=== PATIENT | female | born 1960 | race Caucasian/White ===

== ENCOUNTER → 2017-11-17 14:12 | Outpatient (CLI) | payer BC, SELFPAY ==
--- NOTE | 2017-11-17 14:37 | XR_ITS ---
XR foot RT min 3V HISTORY: ITS.REASON: RT FOOT PAIN ORDERING PHYSICIAN: Cammy Pinto PATIENT AGE: 57 years COMPARISON: None FINDINGS: No fracture or dislocation. No lytic or blastic change. There is normal mineralization.. There are mild hypertrophic changes along the distal and anterior aspect of the tibia and along the dorsal aspect of the midfoot. There is a small calcaneal spur at 9 mm. IMPRESSION: Mild bony hypertrophic/degenerative change, no acute finding
== END ==
PROVIDERS: PCP Nurse Practitioner Family; Visit Provider Nurse Practitioner Family
DX: M79.671 Pain in right foot (principal)
CPT/HCPCS: 73630

== ENCOUNTER → 2018-03-17 12:31 | Outpatient (CLI) | payer MEDICARE, BC, SELFPAY ==
--- NOTE | 2018-03-17 12:38 | XR_ITS ---
XR knee RT 4V HISTORY: ITS.REASON: Rt knee pain ORDERING PHYSICIAN: Taylor Hernandez MD PATIENT AGE: 57 years COMPARISON: None FINDINGS: There are [id number] osteoarthritic changes of the medial compartment with mild osteoarthritis of the patellofemoral joint. Osteophytes are noted medially and at the patellofemoral joint. No fracture or dislocation. No lytic or blastic change. IMPRESSION: [id number] osteoarthritis
== END ==
PROVIDERS: PCP Nurse Practitioner Family; Visit Provider Orthopaedic Surgery
DX: M25.561 Pain in right knee (principal)
CPT/HCPCS: 73564

== ENCOUNTER → 2018-04-14 13:16 | Outpatient (CLI) | payer MEDICARE, BC, SELFPAY ==
--- NOTE | 2018-04-14 13:22 | XR_ITS ---
XR hip LT 2-3V w/pelvis HISTORY: ITS.REASON: Lt hip pain ORDERING PHYSICIAN: Taylor Hernandez MD PATIENT AGE: 57 years COMPARISON: None FINDINGS: Bipolar prosthesis is present on the left and is in satisfactory position. No evidence of orthopedic complications. There are osteoarthritic changes of the right hip. IMPRESSION: Bipolar prosthesis in place on the left with no acute finding
== END ==
PROVIDERS: PCP Nurse Practitioner Family; Visit Provider Orthopaedic Surgery
DX: M25.552 Pain in left hip (principal)
CPT/HCPCS: 73502

== ENCOUNTER → 2018-06-17 08:06 | Outpatient (CLI) | payer MEDICARE, BC, SELFPAY ==
--- NOTE | 2018-06-17 08:13 | XR_ITS ---
XR hip RT 2-3V w/pelvis HISTORY: ITS.REASON: RT hip pain ORDERING PHYSICIAN: Taylor Hernandez MD PATIENT AGE: 58 years COMPARISON: 04/14/2018 FINDINGS: Moderate osteoarthritic changes are present involving the right hip with loss of joint space and osteophyte formation. No fracture or dislocation. No lytic or blastic change. Bipolar prosthesis is present on the left with no evidence of dislocation. IMPRESSION: Moderate osteoarthritis of the right hip
== END ==
PROVIDERS: PCP Family Medicine; Visit Provider Orthopaedic Surgery
DX: M25.551 Pain in right hip (principal)
CPT/HCPCS: 73502

== ENCOUNTER → 2018-06-18 10:19 | Outpatient (CLI) | payer MEDICARE, BC, SELFPAY ==
--- NOTE | 2018-06-18 13:20 | P.PCN_ITS ---
[facility] Procedure Note Procedure Note:: Date of Procedure: 06/18/2018 Pre-procedure diagnosis: R hip DJD Post-procedure diagnosis: same Procedure: intraarticular corticosteroid injection R hip Performed by: Taylor Hernandez MD Top Bottom Attaching Machine Operator/s: none Anesthesia: local; 3cc 1% lidocaine w/o epinephrine Estimated Blood Loss: none History of Present Illness: 58yo F with mild degenerative changes of the right hip, pain is increasing despite activity modification and the use of NSAIDs. She is s/p L SOFIA by another surgeon and has done well, but would like to delay surgery on the right hip as long as possible. I discussed non-operative treatment options, including intraarticular steroid injection, as well as the risks of the procedure. I explained that this is not a cure for arthritis but a symptom relieving/temporizing measure and that multiple injections may lead to increased destruction of her cartilage, infection, and increased risk of infection after SOFIA. She vocalized understanding and provided informed consent for the procedure. Procedure Note: The patient presented to the radiology department and changed into a gown; consent was reviewed and signed by both myself and the patient, all questions were answered. The patient was placed supine on the fluoroscopy table and the R hip exposed. The anterior groin/hip and proximal thigh were prepped with chlorhexidine. Timeout was performed. Next, the fluoro machine was brought in over the patient?s hip and a picture taken to confirm adequate visualization of the joint. I donned a pair of sterile surgical gloves; the remainder of the procedure was performed in a sterile fashion. Anatomic landmarks were used to find my desired puncture site for my needle; a line was drawn between the ASIS and greater trochanter. Nelson along this line a 25G needle was used to infiltrate the skin and subcutaneous tissues with 3cc lidocaine, advancing at a 30 degree angle. Once this tract was anesthetized, a 20G spinal needle was advanced through the same puncture site and deeper at an oblique angle towards the hip joint. Using fluoro, it was confirmed that the needle was advanced until it was at the level of the femoral neck. The stylus was removed from the spinal needle and 2cc of iodinated contrast solution was injected through the spinal needle. Fluoro was taken again, and the dye confirmed intra-capsular placement of the spinal needle, indicating a successful intraarticular injection. The syringe with contrast was removed, keeping the spinal needle in place, and 40mg Kenalog with 1cc 1% lidocaine w/o epinephrine was injected through the needle into the hip joint. A final fluoro picture was taken, confirming successful intraarticular injection. The spinal needle was removed from the hip and a band- aid was placed over the injection site. The patient has a history of itching after intravenous administration of iodinated contrast material in the past but had no immediate reaction to 2cc of intra-capsular omnipaque in the hip today. She was advised to take benedryl if itching develops. Specimens: none Condition/Disposition: good / home Complications: none
== END ==
PROVIDERS: PCP Nurse Practitioner Family; Visit Provider Orthopaedic Surgery
DX: M16.11 Unilateral primary osteoarthritis, right hip (principal); M25.551 Pain in right hip
CPT/HCPCS: 20610; 77002; Q9967

== ENCOUNTER → 2019-01-13 09:49 | Outpatient (CLI) | payer MEDICARE, BC, SELFPAY ==
--- NOTE | 2019-01-13 09:56 | XR_ITS ---
PROCEDURE: XR CERVICAL SPINE 5V CLINICAL INDICATION: CERVICALGIA Acid at COMPARISON: No exams were available for comparison FINDINGS: Normal alignment. No fracture or dislocation. Minimal degenerative disc disease C4-C5. Mild bilateral foraminal narrowing at C3-C4 slightly greater on the left compared to the right. No lytic or blastic change. No cervical rib. There is minimal carotid artery calcification. IMPRESSION: Mild degenerative changes as described above Dictated by: Ismael Cisse MD 01/13/2019 12:02 Electronically signed by Ismael Cisse MD in [place] 01/13/2019 12:02
== END ==
PROVIDERS: PCP Nurse Practitioner Family; Visit Provider Nurse Practitioner Family
DX: M54.2 Cervicalgia (principal)
CPT/HCPCS: 72050

== ENCOUNTER → 2019-03-31 10:27 | Outpatient (CLI) | payer MEDICARE, BC, SELFPAY ==
--- NOTE | 2019-03-31 10:37 | XR_ITS ---
PROCEDURE: XR CHEST 2V CLINICAL HISTORY: COUGH COMPARISON: No exams were available for comparison FINDINGS: The cardiomediastinal silhouette and pulmonary vascularity are within normal limits. The lungs are clear without infiltrates, suspicious nodules, or pleural effusions. Degenerative changes thoracic spine IMPRESSION: No acute findings. Dictated by: Ismael Cisse MD 03/31/2019 12:30 Electronically signed by Ismael Cisse MD in [place] 03/31/2019 12:30
== END ==
PROVIDERS: PCP Nurse Practitioner Family; Visit Provider Nurse Practitioner Family
DX: R05 Cough (principal)
CPT/HCPCS: 71046

== ENCOUNTER → 2019-08-11 07:37 | Outpatient (CLI) | payer MEDICARE, BC, SELFPAY ==
--- NOTE | 2019-08-11 07:37 | US_ITS ---
PROCEDURE: US GALLBLADDER CLINICAL INDICATION: gallbladder problem Nausea, vomiting, fever Right upper quadrant pain COMPARISON: No exams were available for comparison FINDINGS: Pancreas: Unremarkable/Not well seen Liver: There is some increased echogenicity of the liver suggesting fatty liver. There is appropriate direction of blood flow within a non dilated portal vein. Right kidney: Unremarkable appearing. No hydronephrosis. Gallbladder: There are multiple gallstones present. No gallbladder wall thickening, pericholecystic fluid, or biliary dilatation is evident. Common bile duct is 4 mm. IMPRESSION: Cholelithiasis Dictated by: Ismael Cisse MD 08/11/2019 10:19 Electronically signed by Ismael Cisse MD in [place] 08/11/2019 10:19
== END ==
PROVIDERS: PCP Nurse Practitioner Family; Visit Provider Surgery
DX: K82.9 Disease of gallbladder, unspecified (principal)
CPT/HCPCS: 76705

== ENCOUNTER → 2019-11-23 11:09 | Outpatient (CLI) | payer MEDICARE, BC, SELFPAY ==
[2019-11-23 13:04] LABS: Coronavirus 19 IgG Antibody Negative (Negative); Coronavirus 19 IgM Antibody Negative (Negative)
== END ==
PROVIDERS: Visit Provider Surgery
DX: Z01.818 Encounter for other preprocedural examination (principal); Z12.11 Encounter for screening for malignant neoplasm of colon
CPT/HCPCS: 36415; 86328

== ENCOUNTER 2019-11-24 08:26 | Day surgery (SDC) | payer MEDICARE, BC, SELFPAY ==
[2019-11-22 10:29] VITALS: BMI 29.7
[2019-11-24 08:53] VITALS: BP 116/75; PULSE 75; RESP 18; TEMP 36.7; O2SAT 95
[2019-11-24 09:31] VITALS: O2SAT 97
[2019-11-24 10:01] VITALS: BP 97/63; PULSE 73; RESP 18; TEMP 36.2; O2SAT 96
--- NOTE | 2019-11-24 10:01 | HMH.SCOPE ---
- Procedure: Date: 11/24/19 Patient Date of :: 1960 Procedure Performed:: Colonoscopy with polypectomy Indications:: History of colon polyps Performing Provider:: Benny Sidhu MD Referring Provider:: . Sedation:: Monitored anesthesia care Procedure:: After informed consent was obtained the patient was taken to the endoscopy suite. Sedation ensued after the patient was transferred to the left lateral decubitus position. Pulse, blood pressure, and oxygen saturation were monitored throughout the procedure. Digital rectal exam revealed no significant abnormality. The colonoscope was placed in position. The entire colon was evaluated. The colonoscope was carefully removed and the patient was transferred to recovery in stable condition. Please see findings and specimens below for detail. Findings:: Bowel preparation fair Fairly severe spasticity of sigmoid colon/lack of relaxation Sigmoid diverticulosis Polyps (see specimens) Specimens:: Sessile cecal polyp Lobulated polyp at 15 cm (snare) Recommendations:: Timing of repeat colonoscopy is pending pathology but will likely be between 2-3 years secondary to size/nature of polyps and significant spasticity/lack of relaxation of sigmoid colon. Complications:: No immediate Estimated blood obtained (mL): 1
[2019-11-24 10:11] VITALS: BP 121/64; PULSE 74; RESP 18; O2SAT 96
[2019-11-24 10:21] VITALS: BP 125/75; PULSE 74; RESP 18; O2SAT 96
[2019-11-24 10:29] VITALS: BP 110/70; PULSE 70; RESP 18; O2SAT 97
--- NOTE | 2019-11-24 10:54 | P.PN_ITS ---
[facility] Anesthesia Checklist - Patient Identification Patient Identification: Arm Band, Verbal (Name & ) - Structural Data Admitted From: Home Planned Operative Procedure/s: Colonoscopy Consent for Planned Operative Procedure(s) Verified: Yes Verified Documents: Surgical Consent, History and Physical - NPO Status Verified Time NPO: 00:00 - Chart Verification Results Verified: None - Additional verifications Anesthesia Reactions: No - Airway Assessment C-Spine Mobility Assessed: Yes TMJ Mobility Assessed: Yes Dentition: Good Dentition - Neurological Assessment Level of Consciousness: Awake, Alert, Appropriate, Follows Commands Hx Seizures: No Numbness or tingling in extremities: No - Anesthesia Plan Anesthesia Risk discussed: Yes Anesthesia Plan: Verified ASA Class: II Anesthesia Type: [facility] History I have reviewed the patient's past medical history: Yes Medical History: Reports:: Cancer (kidney), Gastroesophageal Reflux Disease(GERD), Hypertension Denies:: Diabetes Mellitus Type 1, Diabetes Mellitus Type 2, Internal Pacemaker, MRSA, Seizures *Have you ever received a pneumonia vaccine?: No *Have you received a flu vaccine this season?: No Other Medical History: Reports: Sinus Problems Anesthesia experience/problems:: None Laterality Cases: Left: Total Hip Replacement Other Surgeries: Yes: Cancer Surgery, Colonoscopy, Hysterectomy-Partial, Other. No: Pacemaker Amputation: No Fractures: No - *Social History Last grade of school completed: 11th or 12th Smoking Status: Former smoker Tobacco Type: cigarettes # Packs/Day (cigarettes): 1 Alcohol Intake: current Alcohol Intake Frequency:: holidays/special occasions only Substance Use Type: denies use *Occupational Status:: retired *Travel in the last 8 weeks: None Family Hx:: Cancer, Coronary Artery Disease, Diabetes
== END 2019-11-24 10:32 | disposition home or self-care (01) ==
LOC: OUTP 08:29
PROVIDERS: PCP Nurse Practitioner Family; Visit Provider Surgery
PROC: 0DJD8ZZ Inspection of Lower Intestinal Tract, Via Natural or Artificial Opening Endoscopic (ICD-10-PCS; principal; 2019-11-24 09:30)
DX: Z12.11 Encounter for screening for malignant neoplasm of colon (principal); K63.5 Polyp of colon; Z86.010 Personal history of colon polyps; Z85.528 Personal history of other malignant neoplasm of kidney; K21.9 Gastro-esophageal reflux disease without esophagitis; I10 Essential (primary) hypertension; Z96.642 Presence of left artificial hip joint; Z90.711 Acquired absence of uterus with remaining cervical stump; Z87.891 Personal history of nicotine dependence; Z83.3 Family history of diabetes mellitus; Z82.49 Family history of ischemic heart disease and other diseases of the circulatory system; Z80.9 Family history of malignant neoplasm, unspecified
CPT/HCPCS: 45380; 45385; 88305

== ENCOUNTER 2021-01-04 19:09 | Emergency (ER) | payer MEDICARE, BC, SELFPAY ==
[2021-01-04 19:15] VITALS: BP 123/95; PULSE 71; RESP 20; TEMP 36.8; O2SAT 95; BMI 26.4
--- NOTE | 2021-01-04 19:50 | HMH.EDUTC ---
[facility] [place] Clinical Impression: Exposure to COVID-19 virus Acute bronchitis Qualifiers: Bronchitis organism: unspecified organism Qualified Code(s): J20.9 - Acute bronchitis, unspecified Sinusitis Qualifiers: Sinusitis location: unspecified location Chronicity: acute Recurrence: non-recurrent Qualified Code(s): J01.90 - Acute sinusitis, unspecified Disposition: Home, Self-Care Condition on Discharge: Good Instructions: DI for Sinusitis, DI for Acute Bronchitis Additional Instructions: Drink plenty of fluids. Take tylenol or ibuprofen for pain or fever. Take the medications as directed. Follow up with your regular doctor. GO TO THE ER FOR ANY WORSENING SYMPTOMS Quarantine until you know the results of your covid-19 test. If it is positive, the health department should call you and give you further instructions about your length of Quarantine and other things. Notify your school or workplace of your results and follow their instructions regarding return to work/school. The cough medication (promethazine dm) will make you drowsy, so don't drive or operate heavy machinery after taking it. Prescriptions: Promethazine/Dextromethorphan [Promethazine-Dm Syrup] 5 ml PO Q6HP PRN #240 ml PRN Reason: Cough Transmission Status: Received by [facility] methylPREDNISolone [Medrol] 4 mg PO DIRECTED 6 Days #21 packet Transmission Status: Received by [facility] guaiFENesin [Mucinex 600mg tablet] 1 - 2 tab PO BIDP PRN #30 tab PRN Reason: Congestion Transmission Status: Received by [facility] Azithromycin [Z-Lucas 250mg Tab*] 250 mg PO UD DOSE PK #6 tab Transmission Status: Received by [facility] Referrals: Cammy Pinto APRN [Primary Care Provider] - Time of Disposition: 20:23 Medical Decision Making - Medical Records Medical records reviewed: No: I reviewed the patient's medical records. - Jacques Inquiry Pt receiving controlled substance: No Vital Signs: 01/04/21 19:15 01/04/21 20:25 Temperature 98.3 F 98.3 F Temperature Source Oral Pulse Rate 71 Pulse Rate [Right Brachial] 71 Respiratory Rate 20 20 Blood Pressure 123/95 H Blood Pressure [Right Arm] 123/95 H Blood Pressure Mean [Right Arm] 104 Blood Pressure Source [Right Arm] Automatic Cuff Blood Pressure Position [Right Arm] Sitting 02 Sat by Pulse Oximetry 95 Oxygen Delivery Method Room Air - Lab Data Lab results reviewed: Yes: I reviewed the patient's lab results. Medical Decision Narrative: She refused a chest x-ray. [facility] [place] General Stated complaint: Covid test. Sore throat,Abd Pain,Runny nose] Time Seen by Provider: 01/04/21 19:50 Mode of Arrival: Ambulatory Source of Information: Patient Limitations: No Limitations Description of Symptoms (Recalled from Triage Doc. by RN): PATIENT C/O HEADACHE, RUNNY NOSE, WEAKNESS, AND RIGHT EAR PAIN. RECENTLY EXPOSED TO COVID HEENT Symptoms (Recalled from RN notes): Yes Resp Symptoms (Recalled from RN notes): No Skin Symptoms (Recalled from RN notes): No MS Symptoms (Recalled from RN notes): No Functional Status (Recalled from RN notes): WNL - History of Present Illness Provider Complaint: She states that over the past 3 days, she has got progressively more congested in her chest and sinuses. She is coughing up greenish sputum. She denies fever, but she has had some chilling at night. She has been fully vaccinated against covid-19. She was around someone about 1 week ago that turned out to have covid-19 though. - Related Data Home Medications Medication Instructions Recorded Confirmed esomeprazole magnesium 40 mg 40 mg PO DAILY 01/28/18 11/24/19 capsule,delayed release propranolol 60 mg capsule,24 60 mg PO DAILY 06/29/19 11/24/19 hr,extended release Escitalopram Oxalate 10 mg PO DAILY 11/22/19 11/22/19 Montelukast Sodium 10 mg PO PM 11/22/19 11/22/19 Previous Rx's Medication Instructions Recorded Cecile
[2021-01-04 20:25] VITALS: BP 123/95; PULSE 71; RESP 20; TEMP 36.8; O2SAT 95
== END 2021-01-04 20:27 | disposition home or self-care (01) ==
LOC: UTC 19:19
PROVIDERS: Emergency Provider Nurse Practitioner Family; PCP Nurse Practitioner Family
DX: J20.9 Acute bronchitis, unspecified (principal); J01.90 Acute sinusitis, unspecified; Z87.891 Personal history of nicotine dependence; K21.9 Gastro-esophageal reflux disease without esophagitis; I10 Essential (primary) hypertension; Z96.642 Presence of left artificial hip joint; Z20.822 Contact with and (suspected) exposure to COVID-19
CPT/HCPCS: 99202; C9803; G0463; U0003; U0005

== ENCOUNTER → 2021-03-28 20:57 | Outpatient (CLI) | payer MEDICARE, BC, SELFPAY | PROVIDERS: Visit Provider Nurse Practitioner Family | DX: J02.9 Acute pharyngitis, unspecified (principal); Z20.822 Contact with and (suspected) exposure to COVID-19 | CPT/HCPCS: C9803; U0003; U0005 ==

== ENCOUNTER 2022-08-24 03:50 | Emergency (ER) | payer MEDICARE, BC, SELFPAY ==
[2022-08-24 03:58] VITALS: BP 153/92; PULSE 68; O2SAT 96
[2022-08-24 04:07] VITALS: BP 153/92; PULSE 75; RESP 16; TEMP 36.6; O2SAT 98; BMI 31.3
--- NOTE | 2022-08-24 04:13 | XR_ITS ---
PROCEDURE INFORMATION: Exam: XR Left Knee Exam date and time: 08/24/2022 4:12 AM Age: 62 years old Clinical indication: Pain; Knee; Left; Additional info: Fall TECHNIQUE: Imaging protocol: Radiologic exam of the left knee. Views: 3 views. COMPARISON: No relevant prior studies available. FINDINGS: Bones/joints: Narrowing of the medial compartment. Mild osteopenia. A small to moderate-sized suprapatellar effusion. Soft tissues: Normal. IMPRESSION: No fracture or dislocation. Degenerative changes and suprapatellar effusion.
--- NOTE | 2022-08-24 04:13 | XR_ITS ---
PROCEDURE INFORMATION: Exam: XR Right Foot Exam date and time: 08/24/2022 4:19 AM Age: 62 years old Clinical indication: Pain; Foot; Right; Additional info: Fall TECHNIQUE: Imaging protocol: Radiologic exam of the right foot. Views: 3 or more views. COMPARISON: CR [id number] XR foot RT min 3V 11/17/2017 2:37 PM FINDINGS: Bones/joints: Normal. Soft tissues: Normal. IMPRESSION: No acute findings.
--- NOTE | 2022-08-24 04:13 | XR_ITS ---
PROCEDURE INFORMATION: Exam: XR Right Knee Exam date and time: 08/24/2022 4:13 AM Age: 62 years old Clinical indication: Pain; Knee; Right; Additional info: Fall TECHNIQUE: Imaging protocol: Radiologic exam of the right knee. Views: 3 views. COMPARISON: CR [id number] XR knee RT 4V 03/17/2018 12:55 PM FINDINGS: Bones/joints: Narrowing of the medial compartment. Soft tissues: Normal. IMPRESSION: Mild degenerative changes. No acute fracture or dislocation.
--- NOTE | 2022-08-24 04:13 | XR_ITS ---
PROCEDURE INFORMATION: Exam: XR Left Hip Exam date and time: 08/24/2022 4:09 AM Age: 62 years old Clinical indication: Hip pain and pelvic pain; Left hip; Additional info: Fall TECHNIQUE: Imaging protocol: Radiologic exam of the left hip. Views: 2 or 3 views hip with pelvis when performed. COMPARISON: CT ABDOMEN PELVIS WO CON 06/11/2019 3:51 PM FINDINGS: Bones/joints: Prior bilateral hip arthroplasty. Soft tissues: Unremarkable. IMPRESSION: Prior hip arthroplasties. No acute process noted.
--- NOTE | 2022-08-24 04:13 | XR_ITS ---
PROCEDURE INFORMATION: Exam: XR Left Foot Exam date and time: 08/24/2022 4:16 AM Age: 62 years old Clinical indication: Pain; Foot; Left; Additional info: Fall TECHNIQUE: Imaging protocol: Radiologic exam of the left foot. Views: 3 or more views. COMPARISON: CR Knee L 08/24/2022 4:12 AM FINDINGS: Bones/joints: Normal. Prior ORIF distal aspect of the 5th metatarsal. Soft tissues: Normal. IMPRESSION: No acute findings.
--- NOTE | 2022-08-24 05:38 | PC.NURSE ---
Rounded on pt. Pt updated on expected wait times. No needs voiced at this time.
--- NOTE | 2022-08-24 06:05 | HMH.EDFALL ---
Discharge Plan Disposition Patient Disposition: Home, Self-Care Chief Complaint: Fall Prescriptions Prescriptions: No Action propranolol 60 mg capsule,extended release 24 hr 60 mg PO DAILY esomeprazole magnesium 40 mg capsule,delayed release(DR/EC) 40 mg PO DAILY atorvastatin 20 mg tablet 20 mg PO DAILY metformin 500 mg tablet extended release 24 hr 500 mg PO POSTTR escitalopram oxalate 10 mg tablet 10 mg PO DAILY Referrals Follow up/Referrals: Cammy Pinto APRN [Primary Care Provider] - See instructions Chris Willams JR, MD [Physician] - See instructions Clinical Impressions Clinical Impression: Injury of knee, left, Internal derangement of knee, Foot pain, bilateral, Fall Instructions Patient Instructions: DI for Knee Pain Discharge ED Provider: Heather (ED)Carl Fall [facility] General Chief Complaint: Fall Stated Complaint: AO 08/23/22 2230 left knee, foot, hip pain Time Seen by Provider: 08/24/22 05:00 Mode of Arrival: Ambulatory Source of Information: Patient and Medical Record Limitations: No Limitations Description of Symptoms (Recalled from ER Triage Doc. by RN): Pt states that she was walking in her kitchen at approx 2200 when she slipped on water and fell. Denies any loss of consciousness. States that she landed on her buttocks. C/O left foot and knee pain, as well as right knee, right knee and bilateral hip pain. Patient is able to ambulate without assistance. History of Present Illness HPI Narrative: trip injury and has knee pain and foot pain reggie HOPKINS complaint: fall Onset (ago): hour(s) Fall from: walking Fall witnessed: no Place fall occurred: home Loss of consciousness: none Prolonged down time: no Symptoms prior to fall: none Context: tripped/slipped Location of injury - extremities: Bilateral: knee and foot Severity: moderate Associated symptoms (after fall): denies Related Data Home Medications Medication Instructions Recorded Confirmed esomeprazole magnesium 40 mg 40 mg PO DAILY acid reflux 01/28/18 08/24/22 capsule,delayed release propranolol 60 mg capsule,24 60 mg PO DAILY blood pressure 06/29/19 08/24/22 hr,extended release escitalopram oxalate 10 mg tablet 10 mg PO DAILY Depression 11/22/19 08/24/22 atorvastatin 20 mg tablet 20 mg PO DAILY High cholesterol 08/24/22 08/24/22 metformin 500 mg tablet,extended 500 mg PO POSTTR daily 08/24/22 08/24/22 release 24 hr Allergies Allergy/AdvReac Type Severity Reaction Status Date / Time Iodinated Contrast Media Allergy Hives Verified 03/28/21 16:29 [Iodinated Contrast Media - Oral and] ibuprofen AdvReac Other Verified 08/24/22 04:01 [facility] Disclaimer: The information contained in this section may have been updated after the patient was seen, as this information can be updated by other users. Social History Smoking Status: Current every day smoker tobacco type: cigarettes packs per day: 1 alcohol intake: current substance use type: denies use current occupational status: retired Travel in the last 8 weeks: None caffeine: Yes ROS Obtained: Yes All systems reviewed & no additional complaints except as documented Physical Exam General General appearance: alert Head Head exam: normocephalic Eye Eye exam: Present PERRL and EOMI ENT ENT exam: Present mucous membranes moist Neck Neck exam: Present trachea midline Respiratory Respiratory exam: Present normal lung sounds bilaterally; Absent respiratory distress Cardiovascular Cardiovascular exam: Present regular rate Extremities Exam Extremities exam: Present full ROM and other (sl effusion lt knee ext mech ok with dec rom , rt knee with pain with rom - feet bilat with sts ) Neurological Exam Neurological exam: Present alert, oriented X3 and CN II-XII intact; Absent motor sensory deficit Psychiatric Psychiatric exam: Present normal affect Skin Skin exam: Absent rash Medical Decision Making Medi
[2022-08-24 06:20] VITALS: BP 153/92; PULSE 78; RESP 18; TEMP 36.6; O2SAT 98
== END 2022-08-24 06:22 | disposition home or self-care (01) ==
PROVIDERS: Emergency Provider Emergency Medicine; PCP Nurse Practitioner Family
DX: M25.562 Pain in left knee (principal); M23.92 Unspecified internal derangement of left knee; M79.671 Pain in right foot; M79.672 Pain in left foot; W01.0XXA Fall on same level from slipping, tripping and stumbling without subsequent striking against object, initial encounter; F17.210 Nicotine dependence, cigarettes, uncomplicated; M25.561 Pain in right knee; M25.551 Pain in right hip; M25.552 Pain in left hip
CPT/HCPCS: 73502; 73562; 73630; 99284; 99285

== ENCOUNTER → 2023-02-06 17:06 | Outpatient (CLI) | payer MEDICARE, BC, SELFPAY ==
[2023-02-06 19:22] LABS: Alanine Aminotransferase 28 U/L (12-78); Albumin Level 4.9 g/dl (3.5-5.0); Albumin/Globulin Ratio 1.5 (1.1-1.8); Alkaline Phosphatase 70 U/L (38-126); Anion Gap 18.8 mEq/L (5-15); Aspartate Amino Transferase 32 U/L (14-36); Bilirubin,Total 0.5 mg/dl (0.2-1.3); Blood Urea Nitrogen 17 mg/dl (7-17); Carbon Dioxide 25 mmol/L (22.0-30.0); Chloride 99 mmol/L (98-107); Chol/HDL Ratio 4.6 (1-3.5); Cholesterol 171 mg/dl (140-200); Estimated Glomerular Filt Rate 85 ml/min (>60); GFR (African American) 103 ML/MIN (>60); Globulin 3.3 g/dL (1.3-3.2); Glucose 152 mg/dl (74-100); HDL Cholesterol 37 mg/dl (40-60); Potassium 4.8 mmoL/L (3.5-5.1); Sodium 138 mmol/L (136-145); Total Protein,Serum 8.2 g/dl (6.3-8.2); Triglycerides 198 mg/dl (30-150); VLDL Cholesterol 40 mg/dL (0-40)
[2023-02-06 19:33] LABS: Direct LDL Cholesterol 100.43 mg/dL (100-129)
[2023-02-06 19:34] LABS: Hemoglobin A1C 6.9 % (4.0-6.0)
== END ==
PROVIDERS: PCP Nurse Practitioner Family; Visit Provider Nurse Practitioner Family
DX: E11.9 Type 2 diabetes mellitus without complications (principal); E78.5 Hyperlipidemia, unspecified; Z79.84 Long term (current) use of oral hypoglycemic drugs
CPT/HCPCS: 80053; 80061; 83036

== ENCOUNTER 2023-06-09 18:00 | Outpatient (CLI) | payer MEDICARE, BC, SELFPAY ==
[2023-06-09 18:00] LABS: Coronavirus 19, PCR Not Detected (NotDetected); Influenza A, PCR Not Detected (NotDetected); Influenza B, PCR Not Detected (NotDetected)
== END 2023-06-09 23:59 ==
PROVIDERS: PCP Nurse Practitioner Family; Visit Provider Nurse Practitioner Family
DX: R50.9 Fever, unspecified (principal); R53.83 Other fatigue; H92.01 Otalgia, right ear; R07.0 Pain in throat
CPT/HCPCS: 87636

== ENCOUNTER 2023-08-06 17:26 | Emergency (ER) | payer MEDICARE, BC, SELFPAY ==
--- NOTE | 2023-08-06 17:38 | EXP.UTC ---
Discharge Plan Disposition Patient Disposition: Home, Self-Care Condition: Good Prescriptions Prescriptions: New phenazopyridine [Pyridium] 200 mg tablet 200 mg PO Q8H 2 Days Qty: 6 0RF ondansetron 4 mg Tablet,Disintegrating 4 mg PO Q8H PRN (Reason: Nausea) Qty: 8 0RF nitrofurantoin monohyd/m-cryst [Macrobid] 100 mg Capsule 100 mg PO BID Qty: 10 0RF Rx Instructions: must administer with a meal/food No Action propranolol 60 mg capsule,extended release 24 hr 60 mg PO DAILY atorvastatin 20 mg tablet 20 mg PO DAILY 30 Days Qty: 30 2RF metformin 750 mg tablet extended release 24 hr See Rx Instructions .ROUTE .COMPLEX Qty: 30 0RF Dose Instruction: TAKE 1 TABLET BY MOUTH ONCE DAILY Rx Instructions: TAKE 1 TABLET BY MOUTH ONCE DAILY omeprazole 40 mg capsule,delayed release(DR/EC) See Rx Instructions .ROUTE .COMPLEX Qty: 30 9RF Dose Instruction: TAKE 1 CAPSULE BY MOUTH 30 MINUTES BEFORE MORNING MEAL EACH DAY Rx Instructions: TAKE 1 CAPSULE BY MOUTH 30 MINUTES BEFORE MORNING MEAL EACH DAY escitalopram oxalate 10 mg tablet 10 mg PO DAILY Referrals Follow up/Referrals: Cammy Pinto APRN [Primary Care Provider] - See instructions Activity Restrictions/Add. Instructions Additional Instructions/Restrictions: Drink plenty of fluids. Take tylenol or ibuprofen for pain or fever. Take the medications as directed. Follow up with your regular doctor. GO TO THE ER FOR ANY WORSENING SYMPTOMS The pyridium will make your urine turn orange, this is an expected side effect. It will stain your clothes if it comes into contact with them. We will culture the urine. That will tell what bacteria is causing your infection and which antibiotics will treat it best. Sometimes the first antibiotic we prescribe turns out to not work against different bacteria. So, make sure you follow up within 3 days if you are not getting better. Clinical Impressions Clinical Impression: UTI (urinary tract infection) Instructions Patient Instructions: Urinary Tract Infection, DI for Urinary Tract Infection (UTI), Ondansetron, Phenazopyridine Discharge ED Provider: Devang L[place] [facility] [place] General Stated complaint: painful frequent urination Time Seen by Provider: 08/06/23 17:37 Related Data Home Medications Medication Instructions Recorded Confirmed propranolol 60 mg capsule,24 60 mg PO DAILY blood pressure 06/29/19 08/06/23 hr,extended release escitalopram oxalate 10 mg tablet 10 mg PO DAILY Depression 11/22/19 08/06/23 Previous Rx's Medication Instructions Recorded atorvastatin 20 mg tablet 20 mg PO DAILY High cholesterol 30 02/06/23 days #30 tabs metformin 750 mg tablet,extended See Rx Instructions .Route 07/31/23 release 24 hr .COMPLEX #30 tabs omeprazole 40 mg capsule,delayed See Rx Instructions .Route 07/31/23 release .COMPLEX #30 caps nitrofurantoin 100 mg PO BID #10 caps 08/06/23 monohydrate/macrocrystals 100 mg capsule (Macrobid) ondansetron 4 mg disintegrating 4 mg PO Q8H PRN Nausea #8 tabs 08/06/23 tablet phenazopyridine 200 mg tablet 200 mg PO Q8H 2 days #6 tabs 08/06/23 (Pyridium) Allergies Allergy/AdvReac Type Severity Reaction Status Date / Time Iodinated Contrast Media Allergy Hives Verified 06/09/23 13:52 [Iodinated Contrast Media - Oral and] ibuprofen AdvReac Other Verified 06/09/23 13:52 [facility] Disclaimer: The information contained in this section may have been updated after the patient was seen, as this information can be updated by other users. Medical History (Updated 08/06/23 @ 18:18 by Devang Lyle APRN) Urinary tract infection History of gastroesophageal reflux (GERD) Diabetes mellitus, type 2 Hyperlipidemia Hypertension Cancer of kidney Surgical History History of kidney surgery History of left oophorectomy H/O bilateral hip replacements Family History (Updated 06/09/23 @ 13:59 by Lizz Gomez LPN) Father Coronary artery disease Mother Diabetes Social History (Updated 06/09/23 @ 14:00 by Lizz Gomez LPN) Smoking Status: Never smoker years smoked: 40 smoking status stop date: 2018 alcohol intake: never substance use type: denies use current occupational status: retired Travel in the last 8 weeks: None caffeine: Yes ROS Obtained: Yes All systems reviewed & no additional complaints except as documented Constitutional Constitutional: Reports system reviewed and no additional complaints, except as documented, Denies chills and Denies fever(s) Eyes Eyes: Denies eye discharge ENT Ears, Nose, Mouth, and Throat: Denies dysphagia, Denies sore throat and Denies throat swelling Cardiovascular Cardiovascular: Denies chest pain and Denies dyspnea Respiratory Respiratory: Denies chest congestion, Denies cough and Denies dyspnea Gastrointestinal Gastrointestingal: Denies abdominal pain, constipation, diarrhea, dysphagia, nausea or vomiting Genitourinary Female Genitourinary: Reports as per HPI, Reports dysuria, Reports urinary frequency, Denies urinary incontinence, Reports urinary hesitancy and Reports urinary urgency Musculoskeletal Musculoskeletal: Denies arthralgias and Reports back pain Integumentary/Breasts Skin/Breast: Denies rash Neurologic Neurologic: Denies paresthesias Allergic/Immunologic Allergic/Immunologic: Denies throat swelling Physical Exam General General appearance: alert and in no apparent distress Head Head exam: atraumatic and normocephalic Eye Eye exam: Present normal appearance, PERRL and EOMI ENT ENT exam: Present normal exam, mucous membranes moist, TM's normal bilaterally and normal external ear exam Neck Neck exam: Present normal inspection, full ROM and trachea midline; Absent tenderness, meningismus or lymphadenopathy Chest Chest inspection: Present normal inspection and symmetric chest wall rise; Absent tenderness Respiratory Respiratory exam: Present normal lung sounds bilaterally; Absent respiratory distress, wheezes or stridor Cardiovascular Cardiovascular exam: Present regular rate, normal rhythm and normal heart sounds Abdominal Exam Abdominal exam: Present soft and normal bowel sounds; Absent distention, tenderness, guarding, rebound, rigidity, incision, psoas sign, obturator sign, heel tap sign, Reyes's sign, Rovsing's sign or tenderness at McBurney's Point Extremities Exam Extremities exam: Present normal inspection, full ROM and normal capillary refill; Absent tenderness, edema, joint swelling, calf tenderness or cyanosis Back Exam Back exam: Present normal inspection and full ROM; Absent tenderness, CVA tenderness (R) or CVA tenderness (L) Neurological Exam Neurological exam: Present alert, oriented X3 and normal gait Psychiatric Psychiatric exam: Present normal affect and normal mood Skin Skin exam: Present warm, dry, intact and normal color Lymphatic Lymphatic Findings: no adenopathy Medical Decision Making Medical Records Medical records reviewed: No I reviewed the patient's medical records. Jacques Inquiry Pt receiving controlled substance: No Lab Data Lab results reviewed: Yes I reviewed the patient's lab results.
[2023-08-06 17:40] VITALS: BP 162/82; PULSE 68; RESP 20; TEMP 36.8; O2SAT 96; BMI 30.4
[2023-08-06 17:56] LABS: Apearance,Urine Clear (Clear); Bilirubin,Urine 1+ (Negative); Blood, Urine 2+ (Negative); Color,Urine Orange (Yellow); Glucose,Urine (UA) 100 (Negative); Ketones,Urine 15 (Negative); Protein,Urine 3+ (Negative); Specific Gravity, Urine >= 1.030 (1.005-1.030); UTC Leukocyte Esterase,Urine 3+ (Negative); UTC Nitrate,Urine Positive (Negative); Urobilinogen,Urine 2 EU/dl (0.2)
[2023-08-06 18:19] VITALS: BP 162/82; PULSE 68; RESP 20; TEMP 36.8; O2SAT 96
== END 2023-08-06 18:24 | disposition home or self-care (01) ==
PROVIDERS: Emergency Provider Nurse Practitioner Family; PCP Nurse Practitioner Family
DX: N39.0 Urinary tract infection, site not specified; B95.2 Enterococcus as the cause of diseases classified elsewhere; R30.0 Dysuria
CPT/HCPCS: 81003; 87086; 87088; 87186; 99212; 99214; G0463

== ENCOUNTER 2023-08-10 10:50 | Outpatient (CLI) | payer MEDICARE, BC, SELFPAY ==
[2023-08-10 18:21] LABS: Alanine Aminotransferase 15 U/L (12-78); Albumin Level 4.6 g/dl (3.5-5.0); Albumin/Globulin Ratio 1.5 (1.1-1.8); Alkaline Phosphatase 71 U/L (38-126); Anion Gap 13.5 mEq/L (5-15); Aspartate Amino Transferase 26 U/L (14-36); Bilirubin,Total 0.6 mg/dl (0.2-1.3); Blood Urea Nitrogen 16 mg/dl (7-17); Carbon Dioxide 32 mmol/L (22.0-30.0); Chloride 101 mmol/L (98-107); Chol/HDL Ratio 4.1 (1-3.5); Cholesterol 180 mg/dl (140-200); Estimated Glomerular Filt Rate 85 ml/min (>60); GFR (African American) 102 ML/MIN (>60); Glucose 101 mg/dl (74-100); HDL Cholesterol 44 mg/dl (40-60); Potassium 4.5 mmoL/L (3.5-5.1); Sodium 142 mmol/L (136-145); Total Protein,Serum 7.6 g/dl (6.3-8.2); Triglycerides 286 mg/dl (30-150); VLDL Cholesterol 57 mg/dL (0-40)
[2023-08-10 18:32] LABS: Direct LDL Cholesterol 98.91 mg/dL (100-129)
[2023-08-10 18:33] LABS: Hemoglobin A1C 6.4 % (4.0-6.0)
[2023-08-10 18:52] LABS: Thyroid Stimulating Hormone 1.27 uIU/mL (0.465-4.68)
== END 2023-08-10 23:59 | disposition home or self-care (01) ==
LOC: LAB.DROPOF 08-11 11:00
PROVIDERS: PCP Nurse Practitioner Family; Visit Provider Nurse Practitioner Family
DX: E78.5 Hyperlipidemia, unspecified; E11.9 Type 2 diabetes mellitus without complications; N39.0 Urinary tract infection, site not specified; Z79.84 Long term (current) use of oral hypoglycemic drugs; Z79.899 Other long term (current) drug therapy; B96.1 Klebsiella pneumoniae [K. pneumoniae] as the cause of diseases classified elsewhere
CPT/HCPCS: 80053; 80061; 83036; 84443; 87086; 87088; 87186

== ENCOUNTER 2023-09-18 10:05 | Outpatient (CLI) | payer MEDICARE, BC, SELFPAY | END 2023-09-18 23:59 | disposition home or self-care (01) | LOC: LAB.DROPOF 09-21 10:06 | PROVIDERS: PCP Nurse Practitioner Family; Visit Provider Nurse Practitioner Family | DX: N39.0 Urinary tract infection, site not specified (principal); B96.20 Unspecified Escherichia coli [E. coli] as the cause of diseases classified elsewhere | CPT/HCPCS: 87086; 87088; 87186 ==

== ENCOUNTER 2023-10-19 11:00 | Outpatient (RCR) | payer MEDICARE, BC, SELFPAY | END 2023-10-19 11:05 | disposition home or self-care (01) | LOC: PT 11:00 | PROVIDERS: Visit Provider Orthopaedic Surgery Adult Reconstructive Orthopaedic Surgery | DX: M25.562 Pain in left knee (principal) | CPT/HCPCS: 97010; 97014; 97016; 97110; 97112; 97140; 97163; 97164; 97530; G0283 ==

== ENCOUNTER 2023-11-23 12:58 | Outpatient (CLI) | payer MEDICARE, BC, SELFPAY | END 2023-11-23 23:59 | disposition home or self-care (01) | LOC: LAB.DROPOF 12:59 | PROVIDERS: PCP Nurse Practitioner Family; Visit Provider Nurse Practitioner Family | DX: N39.0 Urinary tract infection, site not specified (principal); B96.1 Klebsiella pneumoniae [K. pneumoniae] as the cause of diseases classified elsewhere | CPT/HCPCS: 87086; 87088; 87186 ==

== ENCOUNTER 2023-11-26 14:22 | Emergency (ER) | payer MEDICARE, BC, SELFPAY ==
[2023-11-26 14:46] VITALS: BP 135/76; PULSE 117; RESP 20; TEMP 38; O2SAT 98
[2023-11-26 14:55] LABS: UTC Strep Screen (Rapid) Negative (Negative)
--- NOTE | 2023-11-26 15:08 | EXP.UTC ---
Discharge Plan Disposition Patient Disposition: Home, Self-Care Condition: Good Prescriptions Prescriptions: New amoxicillin 875 mg tablet 875 mg PO Q12H Qty: 20 0RF benzonatate 100 mg capsule 100 mg PO TIDP PRN (Reason: Cough) Qty: 30 0RF methylprednisolone 4 mg Tablets,Dose Pack 4 mg PO DIRECTED 6 Days Qty: 21 0RF Rx Instructions: Take 1 pack as directed for 6 days No Action hydrocodone-acetaminophen 5-325 mg tablet 1 tab PO Q4-6H PRN methocarbamol 750 mg tablet 750 mg PO atorvastatin 20 mg tablet 20 mg PO DAILY 30 Days Qty: 30 2RF propranolol 60 mg capsule,extended release 24 hr 60 mg PO DAILY 30 Days Qty: 30 3RF omeprazole 40 mg capsule,delayed release(DR/EC) See Rx Instructions .ROUTE .COMPLEX Qty: 30 9RF Dose Instruction: TAKE 1 CAPSULE BY MOUTH 30 MINUTES BEFORE MORNING MEAL EACH DAY Rx Instructions: TAKE 1 CAPSULE BY MOUTH 30 MINUTES BEFORE MORNING MEAL EACH DAY metformin 750 mg tablet extended release 24 hr See Rx Instructions .ROUTE .COMPLEX Qty: 30 2RF Dose Instruction: TAKE 1 TABLET BY MOUTH ONCE DAILY Rx Instructions: TAKE 1 TABLET BY MOUTH ONCE DAILY escitalopram oxalate 20 mg tablet See Rx Instructions .ROUTE .COMPLEX Qty: 30 1RF Dose Instruction: TAKE 1 TABLET BY MOUTH ONCE DAILY FOR DEPRESSION Rx Instructions: TAKE 1 TABLET BY MOUTH ONCE DAILY FOR DEPRESSION ciprofloxacin HCl 500 mg tablet 500 mg PO BID 10 Days Qty: 20 0RF Referrals Follow up/Referrals: Cammy Pinto APRN [Primary Care Provider] - See instructions Activity Restrictions/Add. Instructions Additional Instructions/Restrictions: Drink plenty of fluids. Take tylenol or ibuprofen for pain or fever. Take the medications as directed. Follow up with your regular doctor. GO TO THE ER FOR ANY WORSENING SYMPTOMS Clinical Impressions Clinical Impression: Pharyngitis, Sinusitis Instructions Patient Instructions: DI for Sinusitis Print Language Print Language: Swazi Discharge ED Provider: Devang Lyle [facility] [place] H[place] General Stated complaint: R ear ache, headache, body aches, sore throat Mode of Arrival: Ambulatory Source of Information: Patient Limitations: No Limitations Time Seen by Provider: 11/26/23 15:08 Description of Symptoms (Recalled from Triage Doc. by RN): kevin,sore throat,earache,body aches,cough HEENT Symptoms (Recalled from RN notes): Yes Resp Symptoms (Recalled from RN notes): Yes Skin Symptoms (Recalled from RN notes): No MS Symptoms (Recalled from RN notes): No Functional Status (Recalled from RN notes): na Related Data Home Medications ?Medication ?Instructions ?Recorded ?Confirmed methocarbamol 750 mg tablet 750 mg PO 08/10/23 11/23/23 hydrocodone 5 mg-acetaminophen 325 1 tab PO Q4-6H PRN 09/18/23 11/23/23 mg tablet Previous Rx's ?Medication ?Instructions ?Recorded omeprazole 40 mg capsule,delayed See Rx Instructions .Route 07/31/23 release .COMPLEX #30 caps atorvastatin 20 mg tablet 20 mg PO DAILY High cholesterol 30 08/10/23 days #30 tabs propranolol 60 mg capsule,24 60 mg PO DAILY blood pressure 30 08/10/23 hr,extended release days #30 caps metformin 750 mg tablet,extended See Rx Instructions .Route 09/02/23 release 24 hr .COMPLEX #30 tabs escitalopram oxalate 20 mg tablet See Rx Instructions .Route 11/02/23 .COMPLEX #30 tabs ciprofloxacin HCl 500 mg tablet 500 mg PO BID 10 days #20 tabs 11/25/23 amoxicillin 875 mg tablet 875 mg PO Q12H #20 tabs 11/26/23 benzonatate 100 mg capsule 100 mg PO TIDP PRN Cough #30 caps 11/26/23 methylprednisolone 4 mg tablets in 4 mg PO DIRECTED 6 days #21 tabs 11/26/23 a dose pack Allergies Allergy/AdvReac Type Severity Reaction Status Date / Time Iodinated Contrast Media Allergy Hives Verified 11/23/23 08:36 [Iodinated Contrast Media - Oral and] ibuprofen AdvReac Other Verified 11/23/23 08:36 Worker's Comp
[2023-11-26 15:30] VITALS: BP 135/76; PULSE 117; RESP 20; TEMP 38; O2SAT 98
== END 2023-11-26 15:32 | disposition home or self-care (01) ==
PROVIDERS: Emergency Provider Nurse Practitioner Family; PCP Nurse Practitioner Family
DX: J02.9 Acute pharyngitis, unspecified (principal); J01.90 Acute sinusitis, unspecified; R51.9 Headache, unspecified; R05.9 Cough, unspecified; H92.01 Otalgia, right ear
CPT/HCPCS: 87635; 87880; 99212; 99214; G0463

== ENCOUNTER 2023-12-15 12:38 | Outpatient (CLI) | payer MEDICARE, BC, SELFPAY ==
--- NOTE | 2023-12-15 12:40 | CT_ITS ---
FINAL REPORT TECHNIQUE: Pre-and postcontrast axial CT images of the abdomen and pelvis were obtained. Coronal reformatted images were also obtained and reviewed. This study was performed with techniques to keep radiation doses as low as reasonably achievable (ALARA). Individualized dose reduction techniques using automated exposure control or adjustment of mA and/or kV according to the patient's size were employed. CLINICAL HISTORY: Left-sided abdominal pain, history of kidney cance COMPARISON: None FINDINGS: On the precontrast images, there is mild fatty infiltration of the liver. The liver is mildly enlarged measuring 19.5 cm. Calcified granulomas are noted in the spleen. There is no evidence of kidney stones. Surgical clips are noted posterior to the left kidney. Capsular calcification is noted in the lateral left kidney. On the postcontrast images, the liver is homogeneous. The gallbladder is present. The spleen, pancreas, and adrenal glands are unremarkable. There is no evidence of kidney mass. There are moderate vascular calcifications in the abdominal aorta and iliac vessels. Multiple small fat-containing hernias are noted in the midline anterior abdominal wall and at the umbilicus. There are scattered diverticuli throughout the descending and sigmoid colon. There is streak artifact from bilateral hip prostheses. IMPRESSION: Postoperative changes posterior to the left kidney without residual or recurrent mass identified. Multiple fat-containing hernias in the midline anterior abdominal wall and at the umbilicus. Mildly enlarged fatty liver. Reviewed, Interpreted and Dictated by Paul Riggs MD Transcribed by Ariela Webber Authenticated and [facility]
[2023-12-15 13:08] LABS: Blood Urea Nitrogen 11 mg/dl (7-17); Estimated Glomerular Filt Rate 101 ml/min (>60); GFR (African American) 122 ML/MIN (>60)
[2023-12-15] MEDS: IOPAMIDOL-370 (76%);100ML BOTTLE 75 ML IV (13:26)
[2023-12-15] MEDS: SODIUM CHLORIDE 0.9% 10ML SYR (RAD ONLY) 10 ML IV (13:26)
== END 2023-12-15 23:59 | disposition home or self-care (01) ==
LOC: RAD 12:40
PROVIDERS: PCP Nurse Practitioner Family; Visit Provider Nurse Practitioner Family
DX: Z85.528 Personal history of other malignant neoplasm of kidney (principal); R10.9 Unspecified abdominal pain; N30.00 Acute cystitis without hematuria
CPT/HCPCS: 36415; 74178; 82565; 84520; Q9967

== ENCOUNTER 2024-04-01 12:05 | Outpatient (CLI) | payer MEDICARE, BC, SELFPAY ==
[2024-04-01 13:10] LABS: Coronavirus 19, PCR Not Detected (NotDetected); Influenza A, PCR Not Detected (NotDetected); Influenza B, PCR Not Detected (NotDetected)
== END 2024-04-01 23:59 | disposition home or self-care (01) ==
LOC: LAB.DROPOF 04-05 10:40
PROVIDERS: PCP Nurse Practitioner Family; Visit Provider Nurse Practitioner Family
DX: R50.9 Fever, unspecified (principal)
CPT/HCPCS: 87636

== ENCOUNTER 2024-09-05 15:35 | Outpatient (CLI) | payer MEDICARE, BC, SELFPAY ==
[2024-09-05 17:32] LABS: Basophils # 0.1 K/mm3 (0-0.2); Basophils % 0.5 % (0.1-2.0); Eosinophils # 0.2 Kmm3 (0.0-0.4); Eosinophils % 1.3 % (0.1-12.0); Hematocrit 38.9 % (37.0-47.0); Hemoglobin 11.9 g/dL (12.2-16.2); Immature Granulocytes # 0.12 10^3uL; Lymphocytes # 3.1 K/mm3 (0.7-4.5); Lymphocytes % 25.2 % (10-50); Mean Corpuscular HGB Conc 30.6 g/dL (31.8-35.4); Mean Corpuscular Hemoglobin 26.8 pg (27.0-31.2); Mean Corpuscular Volume 87.6 fl (81-99); Mean Platelet Volume 9.8 fl (7.4-10.4); Monocytes # 0.7 K/mm3 (0.1-1.0); Monocytes % 5.8 % (1.7-9.3); Neutrophils # 8.2 K/mm3 (1.8-7.8); Neutrophils % 66.2 % (37.0-80.0); Nucleated Red Blood Cells # 0 10^3/uL; Nucleated Red Blood Cells % 0 %; Platelet Count 421 K/mm3 (142-424); Red Blood Count 4.44 M/mm3 (4.20-5.40); Red Cell Distribution Width 13.4 % (11.5-17.5); Red Cell Distribution Width-SD 43.1 fL; White Blood Count 12.3 K/mm3 (4.8-10.8)
[2024-09-05 18:01] LABS: Alanine Aminotransferase 15 U/L (12-78); Albumin/Globulin Ratio 1.4 (1.1-1.8); Alkaline Phosphatase 77 U/L (38-126); Anion Gap 14.5 mEq/L (5-15); Aspartate Amino Transferase 19 U/L (14-36); Bilirubin,Total 0.7 mg/dl (0.2-1.3); Blood Urea Nitrogen 13 mg/dl (7-17); Calcium 9.4 mg/dl (8.4-10.2); Carbon Dioxide 29 mmol/L (22.0-30.0); Chloride 101 mmol/L (98-107); Estimated Glomerular Filt Rate 84 ml/min (>60); GFR (African American) 102 ML/MIN (>60); Globulin 2.8 g/dL (1.3-3.2); Glucose 88 mg/dl (74-100); Potassium 4.5 mmoL/L (3.5-5.1); Sodium 140 mmol/L (136-145); Total Protein,Serum 6.8 g/dl (6.3-8.2)
== END 2024-09-05 23:59 ==
LOC: LAB.DROPOF 09-06 15:03
PROVIDERS: PCP Nurse Practitioner Family; Visit Provider Nurse Practitioner Family
DX: R82.998 Other abnormal findings in urine (principal); N30.00 Acute cystitis without hematuria
CPT/HCPCS: 80053; 85025; 87086

== ENCOUNTER 2024-12-21 11:30 | Outpatient (CLI) | payer MEDICARE, BC, SELFPAY ==
[2024-12-21 18:59] LABS: Coronavirus 19, PCR Not Detected (NotDetected); Influenza A, PCR Not Detected (NotDetected); Influenza B, PCR Not Detected (NotDetected)
--- OUTSIDE RECORDS SUMMARY | 2024-12-23 11:33 | XMS_ITS | Clinical Summary ---
[facility] Address [address] [place] [address] Care Team Providers Care Gristmiller Name Role Phone Cammy Pinto MACHINERY ENGINEER Primary Care Provider + [phone] Social History Tobacco Use Types Packs/Day Years Used Date Smoking Tobacco: Never Assessed Abuse Screen Answer Date Recorded Unsafe at Home or Work/School Not on file Feels Threatened by Someone? Not on file 01/2023 Does Anyone Keep You from Co ntacting Others or Doint Things Outside the Home? Not on file 01/07/2023 Physical Sign of Abuse Present Not on file 1 Housing Stability Answer Date Recorded Current Living Arrangements Not on file 12/28 Potentially Unsafe Housing Conditions Not on lorin e 01/07/2023 Family and Community Support Answer Jairo e Recorded Help with Day-to-Day Activities Not on file 01/07/2023 Lonely or Isolated Not on file 01/07/2023 Employment Answer Date Recorded Do you want help finding or keeping work or a estefany b? Not on file 01/07/2023 Disabilities Answer Date Recorded Concentrating, Remembering, or Making Decisions Difficulty Not on file 01/07/2023 Doing Errands Independently Difficulty Not on fi le 01/07/2023 Education Answer Date Recorded Help with school or training? Not on file Preferred Language Not on file 01/07/2023 Comments Unknown Sex and Gender Information Value Date Recorded Sex Assigned at Not on file Legal Sex Female 12:01 PM EDT Gender Identity Not on file Sexual Orientation Not on file Last Filed Vital Signs Vital Sign Reading Time Taken Comments Blood Pressure 135/86 01/04/2013 3:08 PM EDT Pulse 77 01/04/2013 3:08 PM EDT Temperature 36.8 C (98.2 F) 01/04/2013 3:08 PM EDT Respiratory Rate - - Oxygen Saturation 97% 01/04/2013 3:08 PM EDT Inhaled Oxygen Concentration - - Weight 77.1 kg (170 lb) 01/04/2013 3:08 PM EDT Height 170.2 cm (5' 7 ) 01/04/2013 3:08 PM EDT Body Mass Index 26.63 01/04/2013 3:08 PM EDT Plan of Treatment Health Maintenance Due Date Last Done Comments ANNUAL PHYSICAL 1960 Annual Gynecologic Pelvic and Breast Exam 1960 HEPATITIS C SCREENING 1960 TDAP/TD VACCINES (1 - Tdap) 06/14/1979 MAMMOGRAM 2000 COLOGUARD 2005 COLON CANCER SCREENING 5 YEAR SIGMOIDOSCOPY 2005 COLONOSCOPY [address]CER SCREENING [address] COLONOGRAPHY 2005 FECAL OCCULT BLOOD TEST 2005 FIT Testing (1 year) 2005 Pneumococcal Vaccine 50+ (1 of 1 - PCV) 2010 ZOSTER VACCINE (1 of 2) 2010 INFLUENZA VACCINE 10/28/[address] [place] [address] [facility] B Care Teams Gristmiller Relationship Specialty Start Date End Date Cammy Pinto APRN [facility] [address] [place] [id number] PCP - General Internal Medicine 05/01/23
== END 2024-12-21 23:59 ==
LOC: LAB.DROPOF 12-23 11:31
PROVIDERS: PCP Nurse Practitioner Family; Visit Provider Nurse Practitioner Family
DX: J02.9 Acute pharyngitis, unspecified (principal); R68.89 Other general symptoms and signs; J32.9 Chronic sinusitis, unspecified; R50.9 Fever, unspecified
CPT/HCPCS: 87070; 87631

== ENCOUNTER 2025-01-04 15:10 | Outpatient (CLI) | payer MEDICARE, BC, SELFPAY ==
[2025-01-04 17:27] LABS: Hematocrit 39.8 % (37.0-47.0); Hemoglobin 12.1 g/dL (12.2-16.2); Immature Granulocytes % 0.3 %; Mean Corpuscular HGB Conc 30.4 g/dL (31.8-35.4); Mean Corpuscular Hemoglobin 26.5 pg (27.0-31.2); Mean Corpuscular Volume 87.3 fl (81-99); Nucleated Red Blood Cells % 0 %; Platelet Count 313 K/mm3 (142-424); Red Blood Count 4.56 M/mm3 (4.20-5.40); Red Cell Distribution Width-SD 44.4 fL; White Blood Count 9.9 K/mm3 (4.8-10.8)
[2025-01-04 18:43] LABS: Alanine Aminotransferase 16 U/L (12-78); Albumin Level 4.5 g/dl (3.5-5.0); Albumin/Globulin Ratio 1.7 (1.1-1.8); Alkaline Phosphatase 74 U/L (38-126); Anion Gap 17.2 mEq/L (5-15); Aspartate Amino Transferase 24 U/L (14-36); Bilirubin,Total 0.9 mg/dl (0.2-1.3); Blood Urea Nitrogen 16 mg/dl (7-17); Calcium 9.4 mg/dl (8.4-10.2); Carbon Dioxide 28 mmol/L (22.0-30.0); Chloride 100 mmol/L (98-107); Creatinine,Serum 0.80 mg/dl (0.52-1.04); Estimated Glomerular Filt Rate 72 ml/min (>60); GFR (African American) 87 ML/MIN (>60); Globulin 2.6 g/dL (1.3-3.2); Glucose 74 mg/dl (74-100); Potassium 5.2 mmoL/L (3.5-5.1); Sodium 140 mmol/L (136-145); Total Protein,Serum 7.1 g/dl (6.3-8.2)
--- OUTSIDE RECORDS SUMMARY | 2025-01-05 23:59 | XMS_ITS | Clinical Summary ---
[facility] Address [address] [place] [address] Care Team Providers Care Chicken Catcher Name Role Phone Cammy Pinto INCLUSION INTERN Primary Care Provider + [phone] Social History Tobacco Use Types Packs/Day Years [...] 2010 INFLUENZA VACCINE 10/28/[address] [place] [address] [facility] Care Teams Chicken Catcher Relationship Specialty Start Date End Date Cammy Pinto APRN [facility] [place] [address] [place] [id number] PCP - General Internal Medicine 05/01/23
== END 2025-01-04 23:59 | disposition home or self-care (01) ==
LOC: LAB.DROPOF 01-05 23:57
PROVIDERS: PCP Nurse Practitioner Family; Visit Provider Nurse Practitioner Family
DX: N39.0 Urinary tract infection, site not specified (principal)
CPT/HCPCS: 80053; 85025; 87086

== ENCOUNTER 2025-01-13 11:55 | Outpatient (CLI) | payer MEDICARE, BC, SELFPAY | END 2025-01-13 23:59 | LOC: LAB.DROPOF 01-16 11:56 | PROVIDERS: PCP Nurse Practitioner Family; Visit Provider Nurse Practitioner Family | DX: N39.0 Urinary tract infection, site not specified (principal) | CPT/HCPCS: 87086 ==